=== PATIENT | female | born 1985 | race Two or more races ===

== ENCOUNTER → 2024-07-15 | Outpatient (CLI) | payer MEDICAID, SELFPAY ==
--- NOTE | 2024-07-15 08:30 | XR_ITS ---
Examinations: Ultrasound-guided percutaneous breast biopsy, right breast 11:00 nodule Right breast sonography limited. Exam date and time: July 15, 2024 1003 hours INDICATIONS: Suspicious nodule 8:00 position right breast on ultrasound imaging Informed consent provided. Technique: A timeout was completed verifying correct patient, procedure, site, positioning, and special equipment if applicable Informed consent provided. The patient was placed in a supine position for the breast biopsy. Sonographic images of the breast were performed for localization of the suspicious nodule The patient's breast was prepped and draped in sterile fashion. Maximum sterile barrier technique, hand hygiene, ultrasound sterile technique 1% lidocaine was used to anesthetize the skin and breast adjacent to the suspicious nodule. Utilizing ultrasonographic guidance, 8 core biopsies were obtained of the suspicious nodule utilizing an 18-gauge BioPince needle. The specimens appears satisfactory. US guided breast biopsy marker placement. Estimated blood loss 3 cc. The patient tolerated the procedure well and there were no complications. Impression: Successful ultrasound-guided percutaneous breast biopsy, right breast 8:00 nodule. Ultrasound guided breast biopsy marker placement.
[2024-07-15 09:46] LABS: HCG,Qualitative Serum Negative
[2024-07-15 09:52] LABS: Basophils # (Auto) 0.1 Thou/mm3 (0.0-0.2); Basophils % (Auto) 1 % (0-2.5); Eosinophils # (Auto) 0.1 Thou/mm3 (0.0-0.5); Eosinophils % (Auto) 1 % (0-10); Hematocrit 40.9 % (36.0-46.0); Hemoglobin 13.8 g/dL (12.0-16.0); Immature Granulocytes % (Auto) 0 % (0-0); Immature Granulocytes Auto 0.03 Thou/mm3 (0.00-0.00); Lymphocytes # (Auto) 2.7 Thou/mm3 (1.0-4.8); Lymphocytes % (Auto) 30 % (10-50); Mean Corpuscular HGB Conc 33.7 g/dl (31.0-37.0); Mean Corpuscular Hemoglobin 28.8 pg (25.0-35.0); Mean Corpuscular Volume 85 fL (80-100); Monocytes # (Auto) 0.6 Thou/mm3 (0.0-0.8); Monocytes % (Auto) 7 % (0-12); Neutrophils # (Auto) 5.7 Thou/mm3 (1.8-7.7); Neutrophils % (Auto) 61 % (37-80); Nucleated Red Blood Cell % 0 /100 WBC (0); Platelet Count 291 Thou/mm3 (140-440); White Blood Count 9.3 Thou/mm3 (3.6-11.0)
[2024-07-15 09:55] LABS: INR 0.9 (0.9-1.3); Partial Thromboplastin Time 24.8 Seconds (22.0-36.0); Prothrombin Time 10.3 Seconds (9.0-12.2)
== END | disposition home or self-care (01) ==
PROVIDERS: Radiology Diagnostic Radiology; Referring Provider Nurse Practitioner Women's Health; Visit Provider Nurse Practitioner Women's Health
DX: D24.1 Benign neoplasm of right breast (principal); Z01.812 Encounter for preprocedural laboratory examination
CPT/HCPCS: 19083; 36415; 84703; 85025; 85610; 85730; A4648